=== PATIENT | male | born 1995 | race Two or more races ===

== ENCOUNTER 2022-10-15 11:58 | Outpatient (CLI) | payer OTHER | END 2022-10-15 12:03 | disposition home or self-care (01) | LOC: LAB 11:58 | PROVIDERS: ATTEND General Practice | DX: B18.2 Chronic viral hepatitis C (principal); A64 Unspecified sexually transmitted disease; Z11.3 Encounter for screening for infections with a predominantly sexual mode of transmission; E11.9 Type 2 diabetes mellitus without complications; E55.9 Vitamin D deficiency, unspecified; D51.3 Other dietary vitamin B12 deficiency anemia; R50.9 Fever, unspecified; E78.2 Mixed hyperlipidemia; E03.8 Other specified hypothyroidism; N39.0 Urinary tract infection, site not specified; B00.1 Herpesviral vesicular dermatitis; M54.50 Low back pain, unspecified ==

== ENCOUNTER → 2024-02-25 09:39 | Outpatient (CLI) | payer OTHER ==
[2024-02-25 10:20] LABS: HEMATOCRIT 42.7 % (39.0-48.0); HEMOGLOBIN 14.4 g/dL (13-16.00); MEAN CELL VOLUME 90.2 fL (80.0-100.00); MEAN CORPUSCULAR HEMOGLOBIN 30.3 pg (27.00-32.0); MEAN CORPUSCULAR HGB CONC 33.6 g/dl (32.0-36.0); PLATELET COUNT 213 K/uL (150-450); RED BLOOD COUNT 4.74 M/uL (4.00-6.00); RED CELL DISTRIBUTION WIDTH 13.8 % (11.5-14.5)
[2024-02-25 10:33] LABS: URINE APPEARANCE Clear; URINE BILIRRUBIN Negative (NEGATIVE); URINE BLOOD Negative; URINE COLOR Yellow; URINE GLUCOSE Negative (NEGATIVE); URINE KETONE Negative (NEGATIVE); URINE LEUKOCYTE Negative; URINE NITRATE Negative; URINE PROTEIN Negative (NEGATIVE)
[2024-02-25 10:39] LABS: URINE BACTERIA 29.3 uL (0.0-1933); URINE EPITHELIAL CELLS 4.7 uL (0.0-38.8); URINE RBC 4.4 uL (0.0-20.8); URINE WBC 1.8 uL (0.0-23.2)
[2024-02-25 11:12] LABS: BILIRUBIN TOTAL 1.27 mg/dL (0.3-1.2); CHOL HDL RATIO 4.2 (0-5.0); CREATININE SERUM 0.8 mg/dL (0.70-1.30); GFR 113.5; GLOBULINA 3.6 G/DL (2.4-3.5); POTASSIUM 4.2 mEq/L (3.5-5.1); TOTAL PROTEIN 7.6 gm/dL (6.4-8.2)
[2024-02-25 11:27] LABS: TSH 1.08 uIU/mL (0.358-3.74)
== END | disposition home or self-care (01) ==
LOC: LAB 09:39
DX: R42 Dizziness and giddiness (principal); I10 Essential (primary) hypertension; Z13.220 Encounter for screening for lipoid disorders; Z13.1 Encounter for screening for diabetes mellitus; Z13.89 Encounter for screening for other disorder; N39.0 Urinary tract infection, site not specified; E78.2 Mixed hyperlipidemia

== ENCOUNTER 2024-12-18 11:55 | Outpatient (CLI) | payer OTHER ==
[2024-12-18 12:51] LABS: BASO % 0.6 % (0.1-1.2); EOS # 0.20 (0.04-0.54); EOS % 2.9 % (0.7-7.0); LYMPH # 2.40 (1.18-3.74); LYMPH % 35.4 % (19.3-53.1); MEAN PLATELET VOLUME 10.70 fl (9.4-12.4); MONO # 0.51 (0.24-0.82); MONO % 7.5 % (4.7-12.5); NEUT # 3.60 (1.56-6.13); NEUT % 53.2 % (34.0-71.1); RED CELL DISTRIBUTION WIDTH 13.2 % (11.6-14.4)
[2024-12-18 12:54] LABS: URINE APPEARANCE Clear; URINE BILIRRUBIN Negative (NEGATIVE); URINE BLOOD Negative; URINE COLOR Yellow; URINE GLUCOSE Negative (NEGATIVE); URINE KETONE Negative (NEGATIVE); URINE LEUKOCYTE Negative; URINE NITRATE Negative; URINE PROTEIN Negative (NEGATIVE); URINE UROBILINOGEN 0.2 E.U./dl
[2024-12-18 12:58] LABS: URINE BACTERIA 5.9 uL (0.0-1933)
[2024-12-18 13:10] LABS: INR 1.08
[2024-12-18 13:21] LABS: URINE CAST 0.00 uL (0.0-1.40); URINE EPITHELIAL CELLS 0.6 uL (0.0-38.8); URINE RBC 0.4 uL (0.0-20.8); URINE WBC 0.6 uL (0.0-23.2)
[2024-12-18 14:02] LABS: BUN CREA RATIO 25.0 (7.0-25.0); CREATININE SERUM 0.72 mg/dL (0.70-1.30); GFR 127.33; GLUCOSE FASTING 91.0 mg/dL (65-100); OSMOLALITY SERUM 283.0 MOSM/KG (275-295); PROSTATIC SPECIFIC ANTIGEN 2.31 NG/ML (0.010-4.00); TSH 1.99 uIU/mL (0.358-3.74)
== END 2024-12-18 11:59 | disposition home or self-care (01) ==
LOC: LAB 11:55
PROVIDERS: ATTEND Urology
DX: N48.89 Other specified disorders of penis (principal); R36.0 Urethral discharge without blood; N39.0 Urinary tract infection, site not specified; N39.43 Post-void dribbling; R10.9 Unspecified abdominal pain; I86.1 Scrotal varices; N50.3 Cyst of epididymis